=== PATIENT | male | born 1950 | race Caucasian/White ===

== ENCOUNTER 2022-04-18 18:12 | Observation (INO) | payer MEDICARE, SELFPAY ==
--- NOTE | ~2022-04-18 | CT_ITS ---
EXAMINATION: CT abdomen pelvis wo con DATE: 04/18/2022 19:01 INDICATION: Suprapubic and bilateral flank pain TECHNIQUE: Computed tomography (CT) of the abdomen and pelvis was performed without intravenous contr ast. The dose-length product (DLP) was 422.21 mGy-cm. Automated exposure control and iterative recons truction technique were employed. COMPARISON: None FINDINGS: There is a 6 mm nodule of the right middle lobe. There is calcified coronary artery atheros clerosis. The heart size is normal. The liver, spleen, pancreas, gallbladder, and adrenal glands are normal. There is a 7 mm stone in the distal right ureter causing moderate right hydroureteronephrosis . There is a 4 cm exophytic cyst of the right kidney. There is a 2 mm nonobstructing stone in the low er pole of the right kidney. There is a 5 mm nonobstructing stone in the left kidney upper pole. Ther e is calcified atherosclerosis of the aorta and many of the other arteries. No pathologically enlarge d abdominal or pelvic lymph nodes are identified. A retroaortic left renal vein is noted. There is no free intraperitoneal gas or evidence of bowel obstruction. Colonic diverticulosis is present without evidence of diverticulitis. There is severe lumbar spondylosis. IMPRESSION: 1. 7 mm stone of the distal right ureter causing moderate right hydroureteronephrosis. 2. Bilateral nonobstructing nephrolithiasis. 3. 6 mm nodule of the right middle lobe, probably old granulomatous disease. If the patient has no ri sk factors for malignancy, no further follow up is required. If there are risk factors for malignanc y (i.e., history of smoking, asbestos or radiation exposure), consider followup CT in 12 months. Reviewed, dictated and finalized at location F. IMPRESSION: 1. 7 mm stone of the distal right ureter causing moderate right hydroureteronep hrosis. 2. Bilateral nonobstructing nephrolithiasis. 3. 6 mm nodule of the right middle lobe, probably old granulomatous disease. If the patient has no risk factors for malignancy, no further follow up is requir ed. If there are risk factors for malignancy (i.e., history of smoking, asbest os or radiation exposure), consider followup CT in 12 months.
--- NOTE | ~2022-04-18 | XR_ITS ---
XR abdomen/kub 1V 04/19/2022 09:57 INDICATION: Right ureteral stone TECHNIQUE: KUB COMPARISON: CT dated 04/18/2022 FINDINGS: Bowel gas pattern is normal. There is no evidence of free air, mass, organomegaly, ascites or obstruction. There is a distal right ureteral stone overlying the sacrum. Significant change in p osition compared with prior CT allowing for differences of technique. The bones appear intact. IMPRESSION: 1: No significant change to position of distal right ureteral stone overlying for differences of tech nique.. Reviewed, dictated and finalized at location A. IMPRESSION: 1: No significant change to position of distal right ureteral stone overlying f or differences of technique..
[2022-04-18 18:17] VITALS: BP 162/99; PULSE 90; RESP 18; TEMP 36.8; O2SAT 97
[2022-04-18 18:49] LABS: Basophils Absolute Auto 0.1 K/mm3 (0.0-0.1); Basophils Percent Auto 0.6 % (0.2-1.2); Eosinophils Absolute Auto 0.1 K/mm3 (0-0.3); Eosinophils Percent Auto 0.6 % (0-4.4); Hematocrit 45.8 % (42.0-52.0); Hemoglobin 15.3 g/dL (14.0-18.0); Immature Granulocyte Absolute 0.07 K/mm3 (0.00-0.031); Immature Granulocyte Percent A 0.7 % (0-0.5); Lymphocytes Absolute Auto 1.79 K/mm3 (0.9-3.2); Lymphocytes Percent Auto 17.1 % (18.3-44.2); Mean Corpuscular HGB Conc 33.4 g/dl (32-36); Mean Corpuscular Hemoglobin 31.5 pg (26-34); Mean Corpuscular Volume 94.2 fl (80-100); Mean Platelet Volume 9.2 fl (7.4-10.4); Monocytes Percent Auto 9.7 % (2.6-8.5); Neutrophils Absolute Auto 7.5 K/mm3 (1.3-6.7); Neutrophils Percent Auto 71.3 % (45.5-73.1); Platelet Count Result 235 k/mm3 (150-375); Red Blood Count 4.86 M/mm3 (4.6-6.20); Red Cell Distribution Width 12.9 % (11.5-14.5); White Blood Count 10.5 K/mm3 (4.5-10.0)
--- NOTE | 2022-04-18 18:49 | ED.ABDPAIN ---
HPI - Abdominal Pain General Chief Complaint: Abdominal Pain Stated Complaint: ABD PAIN, HX OF STONES Time Seen by Provider: 04/18/22 18:17 Source: patient History of Present Illness HPI narrative: Patient presents with right-sided flank. Reports has had pain for approximately 3 days getting progressively worse so he came to the ER for further evaluation. His pain is crampy, constant, no clear aggravating or alleviating factors, radiates to his groin. Denies any nausea vomiting or diarrhea denies fevers, cough, congestion. Denies any urinary symptoms dysuria or hematuria. Patient ports a history of kidney stones and feels like this is prior stone. Reports he has passed all stones on his own he takes herbal supplements which assist with breaking up the stone. Related Data Allergies Allergy/AdvReac Type Severity Reaction Status Date / Time No Known Allergies Allergy Verified 04/18/22 18:16 Review of Systems Review of Systems: CONSTITUTIONAL: Denies fever, chills, or sweats. EYES: Denies visual changes, redness, or discharge. ENT: Denies rhinorrhea, congestion, sore throat, or otalgia. CARDIOVASCULAR: Denies chest pain, palpitations, or edema. RESPIRATORY: Denies cough or dyspnea. GASTROINTESTINAL: Denies nausea, vomiting, or diarrhea. GENITOURINARY: Denies dysuria or hematuria. SKIN: Denies rash or itching. MUSCULOSKELETAL: Denies joint pain, or myalgia. NEUROLOGIC: Denies headache, numbness, dizziness, or weakness. PSYCHIATRIC: Denies anxiety or depression. All systems reviewed & are unremarkable except as noted in HPI and below Exam Narrative: GENERAL: Well-appearing, well-nourished, and in no acute distress. HEAD: Normocephalic, atraumatic. EYES: PERRLA and EOMI. ENT: Nares clear, no rhinorrhea or epistaxis. Mucous membranes moist. NECK: Supple. No masses. No JVD CHEST: Clear to auscultation. No respiratory distress. No wheezes rales or rhonchi HEART: Regular rate and rhythm. No murmur heard. Normal peripheral pulses. ABDOMEN: Soft, nontender, nondistended BACK: Unable reduced pain with palpation of the back. EXTREMITIES: Normal range of motion. No edema. SKIN: Warm, dry, no rash. NEURO: No focal deficits. Alert and oriented x3. PSYCH: Normal mood and affect. Course Reevaluation(s) Reevaluation #1: Patient reports mild improvement in his pain labs and imaging reviewed. Based on the size and limited ability to control pain management for stay in the hospital for procedural intervention Case cussed with urology who agrees. Discussed with hospitalist team will admit for further management. Date: 04/18/22 Time: 20:23 Vital Signs Vital signs: Vital Signs Temperature 36.8 C 04/18/22 18:17 Pulse Rate 90 04/18/22 18:17 Respiratory Rate 18 04/18/22 18:17 Blood Pressure 162/99 H 04/18/22 18:17 Pulse Oximetry 97 04/18/22 18:17 Oxygen Delivery Room Air 04/18/22 18:17 Temperature 38.1 C H 04/18/22 22:14 Pulse Rate 114 H 04/18/22 22:14 Respiratory Rate 24 H 04/18/22 22:14 Blood Pressure 156/90 H 04/18/22 22:14 Pulse Oximetry 99 04/18/22 22:14 Oxygen Delivery Room Air 04/18/22 18:17 MDM - Abdominal Pain MDM Narrative Medical decision making narrative: Patient presents with right-sided flank pain history of stones feels like his prior stones. Labs and imaging obtained. 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 UA was without infection CT scan showed 7 mm right distal ureteral stone. Due to limited pain control and size of stone patient will be admitted for further evaluation by urology. Hospitalist team accepted for admission. Lab Data Result diagrams: 04/18/22 18:23 04/18/22 18:23 Labs: Lab Results 04/18/22 04/18/22 04/18/22 Range/Units 18:23 18:23 18:50 WBC 10.5 H (4.5-10.0) K/mm3 RBC 4.86 (4.6-6.20) M/mm3 Hgb 15.3 (14.0-18.0) g/dL Hct 45.8 (42.0-
[2022-04-18] MEDS: MORPHINE SULFATE (*CRX) 4 MG/ML INJ IV PUSH ×2 (18:51→20:58)
[2022-04-18 19:00] LABS: Alanine Aminotransferase 20 U/L (6-50); Albumin Level 4.6 g/dL (3.5-5.1); Alkaline Phosphatase 66 U/L (38-126); Anion Gap 7 mmol/L (8-16); Aspartate Amino Transferase 32 U/L (17-59); Bilirubin,Total 1.4 mg/dL (0.2-1.3); Blood Urea Nitrogen 20 mg/dL (9-20); Calcium 9.8 mg/dL (8.4-10.2); Carbon Dioxide 24 mmol/L (22-30); Chloride 99 mmol/L (98-107); Estimated Glomerular Filt Rate 46; Glucose 103 mg/dL (65-110); Lipase 65 U/L (23-300); Potassium 4.5 mmol/L (3.4-5.0); Sodium 130 mmol/L (137-145)
[2022-04-18 19:09] LABS: Appearance Urine Clear (Clear); Bilirubin Urine Negative (Negative); Blood Urine 2+ (Negative); Color Urine Yellow (Yellow); Glucose Urine UA Negative (Negative); Ketones Urine 2+ mg/dL (Negative); Leukocyte Esterase Ur Negative LEU/UL (Negative); Nitrate Urine Negative (Negative); Protein Urine Negative (Negative); Specific Grav Ur 1.015 (1.001-1.035); Urobilinogen Urine 0.2 mg/dL (<2.0)
[2022-04-18 19:14] LABS: Add Urine Microscopic? YES; Bacteria Urine Trace /hpf; Mucus Urine Rare /lpf; Squamous Epithelial Cell Urine Rare /hpf (Few); WBC Urine 0-3 /hpf
[2022-04-18 19:30] VITALS: BP 152/80; PULSE 80; RESP 16; TEMP 36.8; O2SAT 98
[2022-04-18 20:00] VITALS: BP 156/82; PULSE 82; RESP 16; TEMP 36.6; O2SAT 98
--- NOTE | 2022-04-18 20:36 | PM.IMHP ---
H&P: HPI History of Present Illness Date/Time: 04/18/22 20:36 Chief Complaint: Abdominal Pain Narrative: This very pleasant 71 year old male patient with significant PMH of multiple kidney stones, presents to the ER independently ambulatory with complaints of having right sided flank and abdominal pain that has been present for the past three days. He denies any injuries. He reports that he normally takes an all natural supplement called Materials Planner/Production Planner but it has not worked this time. He reportedly does not follow with a specific Urologist. He denied any urinary urgency, burning, frequency or hematuria. He was evaluated with labs and imaging in the ER and there is an abnormal Creatinine, however, we have nothing to compare it to as he has not been her previously. His Sodium is slightly low at 130, and his T-Bili is slightly elevated at 1.4. In addition, he has a CT that shows a 7 mm stone of the right distal ureter causing moderate right sided hydroureteronephrosis, bilateral non-obstructing nephrolithiasis, and a 6 mm nodule of the RML that is probable old granulomatous disease. He has no risk factors for malignancy, so he may follow up with his PCP for determination of any potential further testing. He denies any CP, dyspnea, or diarrhea. He has had emesis secondary to nausea from the pain. ED physician spoke with Urology group controller and he will see patient tomorrow for possible intervention. He will be admitted to observation tonight for pain control and hydration. Review of Systems Review of Systems: As noted in HPI Meds Home Medications and Allergies Allergies Allergy/AdvReac Type Severity Reaction Status Date / Time No Known Allergies Allergy Verified 04/18/22 18:16 Vital Signs Vital Signs - 24 hr 04/18/22 18:17 Temperature 98.3 F Pulse Rate 90 Respiratory Rate 18 Blood Pressure 162/99 H Pulse Oximetry 97 Oxygen Delivery Room Air Exam Const: General: uncomfortable HENMT: Ears: TM's normal bilaterally General nose exam: Normal nares present Mouth: Yes moist mucous membranes Eyes: General: appearance normal, both eyes and all related structures Sclera: sclerae normal Pupils: Equal, round and reactive pupils present EOM: EOMs intact bilaterally Neck: Neck: supple and no JVD Carotids: no bruits Lymphatic: lymphadenopathy not noted Chest: Other: Not tender to palpation. Resp: Effort & Inspection: normal respiratory effort Auscultation: clear to auscultation bilaterally Cardio: Rate: regular rate Rhythm: regular rhythm Heart sounds: no gallops, no murmurs and no rubs GI: Inspection: non-distended GI Palp: Yes Soft to palpation, No Tenderness to palpation present (GI) and No Guarding due to palpation present (GI) Auscultation: normal bowel sounds Other: + Flank Pain on right side. Back/Spine/Pelvis: Back: no CVA tenderness Cervical Spine: cervical ROM normal Thoracic/Lumbar Spine: thoracic and lumbar spine normal to inspection Skin: General skin exam: normal color and no rashes or lesions noted Lesions: no lesions noted Rashes: no rashes noted Wounds: no wounds Neuro: General: gait normal Speech: normal speech Motor exam (neuro): 5/5 motor strength present throughout and Normal motor muscle tone present throughout Sensory Exam: normal sensation Extrem: General: normal to inspection Other: FROM of all extremities without any deficits. Strength intact in all extremities. Psych: Mental Status: mental status grossly normal Affect: normal affect H&P: Results Labs Labs: Short CBC 04/18/22 Range/Units 18:23 WBC 10.5 H (4.5-10.0) K/mm3 Hgb 15.3 (14.0-18.0) g/dL Hct 45.8 (42.0-52.0) % Plt Count 235 (150-375) k/mm3 BMP 04/18/22 18:23 Sodium 130 L Potassium 4.5 Chloride 99 Carbon Dioxide 24 BUN 20 Creatinine 1.50 H Glucose 103 Calcium 9.8 Liver Function 04/18/22 Range/Units 18:23 Total Bilirubin 1.4 H (0.2-1.3) mg/dL AST 32 (17-59) U
[2022-04-18] MEDS: ONDANSETRON INJ 4 MG/2 ML VIAL IV PUSH (20:58)
[2022-04-18] MEDS: SODIUM CHLORIDE 0.9% IV 1,000 ML 125 ML IV CONT (20:59)
[2022-04-18 21:32] VITALS: TEMP 37.9
[2022-04-18 21:44] LABS: SARS-CoV-2 RNA PCR Negative
[2022-04-18 22:08] VITALS: BP 139/80; PULSE 74; RESP 16; TEMP 36.4; O2SAT 100
[2022-04-18 22:14] VITALS: BP 156/90; PULSE 114; RESP 24; TEMP 38.1; O2SAT 99
[2022-04-18 23:07] VITALS: BMI 25.7
--- NOTE | 2022-04-18 23:19 | ADMGEN ---
This patient, Gray Nascimento, was admitted to Medical Room 261-01. Patient/family oriented to hospital policies and general routines including ID bracelet, bed and alarms, visiting hours, pain management, procedures, bathroom and other care routines, personal items, smoking policy, room service/diet, and visiting hours. Information on how to activate the Rapid Response Team has been discussed. Patient/Family are encouraged to report perceived risks to care and to ask questions if they do not understand what they are told or what they should do.
[2022-04-19] VITALS (7 sets, daily range): BP systolic 94–145; BP diastolic 60–88; PULSE 64–78; RESP 13–18; TEMP 36.2–37.1; O2SAT 97–100
[2022-04-19 06:15] LABS: INR 1.3; Prothrombin Time 15.7 Seconds (11.1-14.7)
[2022-04-19 06:16] LABS: Partial Thromboplastin Time 39.9 SECONDS (22.3-36.8)
[2022-04-19 06:18] LABS: Basophils Absolute Auto 0.1 K/mm3 (0.0-0.1); Basophils Percent Auto 0.8 % (0.2-1.2); Eosinophils Absolute Auto 0.2 K/mm3 (0-0.3); Eosinophils Percent Auto 1.9 % (0-4.4); Hematocrit 40.7 % (42.0-52.0); Hemoglobin 13.4 g/dL (14.0-18.0); Immature Granulocyte Absolute 0.05 K/mm3 (0.00-0.031); Immature Granulocyte Percent A 0.6 % (0-0.5); Lymphocytes Absolute Auto 1.97 K/mm3 (0.9-3.2); Mean Corpuscular HGB Conc 32.9 g/dl (32-36); Mean Corpuscular Hemoglobin 31.5 pg (26-34); Mean Corpuscular Volume 95.5 fl (80-100); Mean Platelet Volume 9.4 fl (7.4-10.4); Monocytes Percent Auto 12.5 % (2.6-8.5); Neutrophils Absolute Auto 4.7 K/mm3 (1.3-6.7); Neutrophils Percent Auto 59.2 % (45.5-73.1); Platelet Count Result 199 k/mm3 (150-375); Red Blood Count 4.26 M/mm3 (4.6-6.20); Red Cell Distribution Width 12.9 % (11.5-14.5); White Blood Count 7.9 K/mm3 (4.5-10.0)
[2022-04-19 06:21] LABS: Alanine Aminotransferase 13 U/L (6-50); Albumin Level 3.7 g/dL (3.5-5.1); Alkaline Phosphatase 48 U/L (38-126); Anion Gap 4 mmol/L (8-16); Aspartate Amino Transferase 24 U/L (17-59); Bilirubin,Total 1.1 mg/dL (0.2-1.3); Blood Urea Nitrogen 20 mg/dL (9-20); Calcium 8.9 mg/dL (8.4-10.2); Carbon Dioxide 28 mmol/L (22-30); Chloride 100 mmol/L (98-107); Estimated CRCL calculation 47 ml/min; Estimated Glomerular Filt Rate 46; Glucose 88 mg/dL (65-110); Potassium 4.4 mmol/L (3.4-5.0); Sodium 132 mmol/L (137-145)
--- NOTE | 2022-04-19 07:41 | WPDURCON ---
Assessment and Plan Assessment and plan (1) Calculus, ureteral: Code(s): N20.1 - Calculus of ureter Status: Acute Assessment and Plan: Obstructing 7 mm right distal ureteral calculus and nonobstructing bilateral renal calculi. Will get a KUB to look for ureteral stone positioning calcification. Will subsequently make a decision about intervention with either ureteroscopy or extracorporeal shockwave lithotripsy. Urology Consult Note HPI Date Seen: 04/19/22 Requesting Physician: Eulogio Nino MD Primary Care Provider: Joseph Hair DO Consult Narrative Narrative: Gray Nascimento is a 71 year old male who has not been seen in our practice but reports a history of several renal and ureteral calculi which he has passed spontaneously. He presents to the emergency room last night with a 3 day history of progressively severe, intermittent right flank pain radiating to his right lower quadrant. The pain has been associated with nausea vomiting but no fevers chills or gross hematuria CT imaging demonstrates an obstructing 7 mm right distal ureteral calculus. additionally he has a 2 mm nonobstructing stone in the right kidney and a 5 mm nonobstructive stone in the left kidney. He has been admitted for hydration analgesics. Review of Systems Cardiovascular: Cardiovascular: Denies chest pain, Denies lightheadedness, Denies palpitations and Denies dyspnea Respiratory: Respiratory: Denies dyspnea Gastrointestinal: Gastrointestinal: Denies diarrhea, Denies nausea and Denies vomiting Genitourinary: Genitourinary: Denies hematuria and Denies dysuria Endocrine: Endocrine: Denies palpitations [facility] Family History Family History (Updated 04/18/22 @ 22:42 by Cachorro Mcmanus RN) Sibling Malignant neoplasm of prostate Father Cerebrovascular accident Social History Social History Smoking status: Former smoker Tobacco type: cigarettes Alcohol intake: current Drinks per week: 10 Substance use: never Spiritual care concerns: No Meds Home Medications and Allergies Allergies Allergy/AdvReac Type Severity Reaction Status Date / Time No Known Allergies Allergy Verified 04/18/22 18:16 Vital Signs Vital Signs - 24 hr 04/18/22 18:17 04/18/22 19:30 04/18/22 20:00 Temperature 98.3 F 98.3 F 97.8 F Pulse Rate 90 80 82 Respiratory Rate 18 16 16 Blood Pressure 162/99 H 152/80 H 156/82 H Pulse Oximetry 97 98 98 Oxygen Delivery Room Air 04/18/22 21:32 04/18/22 22:08 04/18/22 22:14 Temperature 100.2 F H 97.6 F 100.5 F H Pulse Rate 74 114 H Respiratory Rate 16 24 H Blood Pressure 139/80 156/90 H Pulse Oximetry 100 99 Oxygen Delivery 04/19/22 06:12 Temperature 98.7 F Pulse Rate 73 Respiratory Rate 14 Blood Pressure 124/73 Pulse Oximetry 98 Oxygen Delivery Exam Const: General: no acute distress Resp: Effort & Inspection: normal respiratory effort GI: Inspection: non-distended GI Palp: No abdominal tenderness and No Guarding due to palpation present (GI) Auscultation: normal bowel sounds Results Labs CBC & Chem 7: 04/19/22 05:14 04/19/22 05:14 Labs: Short CBC 04/18/22 04/19/22 Range/Units 18:23 05:14 WBC 10.5 H 7.9 (4.5-10.0) K/mm3 Hgb 15.3 13.4 L (14.0-18.0) g/dL Hct 45.8 40.7 L (42.0-52.0) % Plt Count 235 199 (150-375) k/mm3 BMP 04/18/22 04/19/22 18:23 05:14 Sodium 130 L 132 L Potassium 4.5 4.4 Chloride 99 100 Carbon Dioxide 24 28 BUN 20 20 Creatinine 1.50 H 1.50 H Glucose 103 88 Calcium 9.8 8.9 Liver Function 04/18/22 04/19/22 Range/Units 18:23 05:14 Total Bilirubin 1.4 H 1.1 (0.2-1.3) mg/dL AST 32 24 (17-59) U/L ALT 20 13 (6-50) U/L Alkaline Phosphatase 66 48 (38-126) U/L Albumin 4.6 3.7 (3.5-5.1) g/dL Urine 04/18/22 Range/Units 18:50 Urine Color Yellow
[2022-04-19] MEDS: SODIUM CHLORIDE 0.9% IV 1,000 ML 125 ML IV CONT (12:37)
--- NOTE | 2022-04-19 13:23 | WPDANESEPPF ---
Anes - Initial Pre Proc Eval Procedure: Operation Date: 04/19/22 14:30 Proposed Procedures p Cystoscopy, Right Ureteroscopy, - Dmitry Waterman MD s Possible Right Extracorporeal Shock Wave Lithotripsy - Dmitry Waterman MD Date/Time: 04/19/22 13:23 Surgeon: Manoj Moses MD Pre Op Diagnosis: ureteral stone Patient Data Age: 71 Gender: M Height: 1.91 m Weight: 93.6 kg Last Vital Signs Temp 37.1 C 04/19/22 06:12 Pulse 73 04/19/22 06:12 Resp 14 04/19/22 06:12 BP 124/73 04/19/22 06:12 Pulse Ox 98 04/19/22 06:12 O2 Del Method Room Air 04/19/22 09:50 Allergies Allergy/AdvReac Type Severity Reaction Status Date / Time No Known Allergies Allergy Verified 04/18/22 18:16 Laboratory Tests 04/18/22 04/18/22 04/18/22 18:23 18:23 18:50 WBC 10.5 K/mm3 H K/mm3 (4.5-10.0) RBC 4.86 M/mm3 M/mm3 (4.6-6.20) Hgb 15.3 g/dL g/dL (14.0-18.0) Hct 45.8 % % (42.0-52.0) MCV 94.2 fl fl (80-100) MCH 31.5 pg pg (26-34) MCHC 33.4 g/dl g/dl (32-36) RDW 12.9 % % (11.5-14.5) Plt Count 235 k/mm3 k/mm3 (150-375) MPV 9.2 fl fl (7.4-10.4) Immature Gran % (Auto) 0.7 % H % (0-0.5) Neut % (Auto) 71.3 % % (45.5-73.1) Lymph % (Auto) 17.1 % L % (18.3-44.2) Phelps % (Auto) 9.7 % H % (2.6-8.5) Eos % (Auto) 0.6 % % (0-4.4) Baso % (Auto) 0.6 % % (0.2-1.2) Lymph # (Auto) 1.79 K/mm3 K/mm3 (0.9-3.2) Phelps # (Auto) 1.0 K/mm3 H K/mm3 (0.1-0.6) Eos # (Auto) 0.1 K/mm3 K/mm3 (0-0.3) Baso # (Auto) 0.1 K/mm3 K/mm3 (0.0-0.1) Abs Immat Gran (auto) 0.07 K/mm3 H K/mm3 (0.00-0.031) Absolute Neuts (auto) 7.5 K/mm3 H K/mm3 (1.3-6.7) Absolute Nucleated RBC 0.0 K/mm3 K/mm3 (0.0-0.012) Nucleated RBC % 0.0 % % (0.0-0.2) PT INR APTT Sodium 130 mmol/L L mmol/L (137-145) Potassium 4.5 mmol/L mmol/L (3.4-5.0) Chloride 99 mmol/L mmol/L (98-107) Carbon Dioxide 24 mmol/L mmol/L (22-30) Anion Gap 7 mmol/L L mmol/L (8-16) BUN 20 mg/dL mg/dL (9-20) Creatinine 1.50 mg/dL H mg/dL (0.7-1.3) Estim Creat Clear Calc Not Reportable Estimated GFR 46 L (59 - ) Glucose 103 mg/dL mg/dL (65-110) Calcium 9.8 mg/dL mg/dL (8.4-10.2) Magnesium Total Bilirubin 1.4 mg/dL H mg/dL (0.2-1.3) AST 32 U/L U/L (17-59) ALT 20 U/L U/L (6-50) Alkaline Phosphatase 66 U/L U/L (38-126) Total Protein 8.0 g/dL g/dL (6.3-8.2) Albumin 4.6 g/dL g/dL (3.5-5.1) Lipase 65 U/L U/L (23-300) Urine Color Yellow (Yellow) Urine Appearance Clear (Clear) Urine pH 6.0 (5.0-9.0) Ur Specific Doucette 1.015 (1.001-1.035) Urine Protein Negative mg/dL mg/dL (Negative) Urine Glucose (UA) Negative mg/dL mg/dL (Negative) Urine Ketones 2+ mg/dL H mg/dL (Negative) Ur Blood (Man) 2+ H (Negative) Urine Nitrate Negative (Negative) Urine Bilirubin Negative (Negative) Urine Urobilinogen 0.2 mg/dL mg/dL (<2.0) Leukocyte Esterase Rfl Negative SALAZAR/UL SALAZAR/UL (Negative) Urine RBC 11-20 /hpf H /hpf (0-2) Urine WBC 0-3 /hpf /hpf Ur Squamous Epith Cells Rare /hpf /hpf (Few) Urine Bacteria Trace /hpf /hpf Urine Mucus Rare /lpf /lpf SARS-CoV-2 RNA (RT-PCR) 04/18/22 04/19/22 04/19/22 21:03 05:14 05:14 WBC 7.9 K/mm3 K/mm3 (4.5-10.0) RBC 4.26 M/mm3 L M/mm3 (4.6-6.20) Hgb 13.4 g/dL L g/dL (14.0-18.0) Hct 40.7 % L %
[2022-04-19] MEDS: SODIUM CHLORIDE 0.9% IV 500 ML 30 ML IV CONT (13:46)
--- NOTE | 2022-04-19 13:57 | PM.IMPN ---
Progress Note: A&P Assessment and Plan (1) Calculus, ureteral: Code(s): N20.1 - Calculus of ureter Status: Acute Assessment and Plan: - Pain control with Morphine 4 mg Q2 hrs for pain. - Zofran for nausea 4 mg Q4 hours. - IVF of NS at 125 ml/hr - Urology has been consulted and plan for intervention -stays NPO - Monitor labs and VS. (2) Hyponatremia: Code(s): E87.1 - Hypo-osmolality and hyponatremia Status: Acute Assessment and Plan: - likely benign and secondary to potential mild dehydration. - Patient is asymptomatic of any Neurological symptoms. - Continue IVF of NS at 125 ml/hr. - Trend labs and VS. Plan Lung nodule 6 mm right middle lobe probably follow-up outpatient with repeat CT in 12 months Bilateral nonobstructing nephrolithiasis Fever last night will cover IV antibiotics DVT prophylaxis Subjective Date/time seen: 04/19/22 13:57 Interval history: HPI: This very pleasant 71 year old male patient with significant PMH of multiple kidney stones, presents to the ER independently ambulatory with complaints of having right sided flank and abdominal pain that has been present for the past three days. He denies any injuries. He reports that he normally takes an all natural supplement called [employer] Broach Operator but it has not worked this time. He reportedly does not follow with a specific Urologist. He denied any urinary urgency, burning, frequency or hematuria. He was evaluated with labs and imaging in the ER and there is an abnormal Creatinine, however, we have nothing to compare it to as he has not been her previously. His Sodium is slightly low at 130, and his T-Bili is slightly elevated at 1.4. In addition, he has a CT that shows a 7 mm stone of the right distal ureter causing moderate right sided hydroureteronephrosis, bilateral non-obstructing nephrolithiasis, and a 6 mm nodule of the RML that is probable old granulomatous disease. He has no risk factors for malignancy, so he may follow up with his PCP for determination of any potential further testing. He denies any CP, dyspnea, or diarrhea. He has had emesis secondary to nausea from the pain. ED physician spoke with Urology hematology oncology consultant and he will see patient tomorrow for possible intervention. He will be admitted to observation tonight for pain control and hydration. Review of Systems Review of Systems: All systems reviewed & are unremarkable except as noted in HPI and below (HPI) Exam Narrative: GENERAL: The patient is well developed, not in acute distress HEENT: Nonicteric sclerae, PERRLA, EOMI. Oropharynx clear. Moist mucous membranes. Conjunctivae appear well perfused. CHEST: Chest wall is nontender. HEART: Regular rate and rhythm without murmur, rubs, or gallops LUNGS: Clear to auscultation bilaterally. no respiratory distress ABDOMEN: Soft, positive bowel sounds, non-tender, no organomegaly. SKIN: No rash, no excessive bruising, petechiae, or purpura. NEUROLOGIC: Cranial nerves II-XII intact, alert and oriented x 3, no gross motor deficits EXTREMITIES: no edema, cyanosis or clubbing Objective Data Vital Signs Vital Signs: Vital Signs - 24 hr 04/18/22 18:17 04/18/22 19:30 04/18/22 20:00 Temperature 98.3 F 98.3 F 97.8 F Pulse Rate 90 80 82 Respiratory Rate 18 16 16 Blood Pressure 162/99 H 152/80 H 156/82 H Pulse Oximetry 97 98 98 Oxygen Delivery Room Air 04/18/22 21:32 04/18/22 22:08 04/18/22 22:14 Temperature 100.2 F H 97.6 F 100.5 F H Pulse Rate 74 114 H Respiratory Rate 16 24 H Blood Pressure 139/80 156/90 H Pulse Oximetry 100 99 Oxygen Delivery 04/19/22 06:12 04/19/22 09:50 04/19/22 13:14 Temperature 98.7 F 98 F Pulse Rate 73 78 Respiratory Rate 14 16 Blood Pressure 124/73 145/78 H Pulse Oximetry 98 99 Oxygen Delivery Room Air Room Air Intake/Output Intake/Output: Intake & Output 04/16/22 04/17/22 04/18/22 04/19/22 23:59 23:59 23:59 23:59 Intake Total 1000 Output Total 400
--- NOTE | 2022-04-19 14:33 | WPDHPUPDATE1 ---
History and Physical Update Update Date/Time: 04/19/22 14:33 History and Physical has been reviewed, including an updated exam of the patient. There are NO changes in the patient's condition. Risks, benefits, and alternatives have been discussed and questions answered. Patient agrees to proceed with procedure. Based on KUB findings will proceed with right ESWL - discussed with pt.
[2022-04-19] MEDS: ceFAZolin 2 GM/D5W 50 ML 2 GM/50 ML BAG IVPB (14:39)
--- NOTE | 2022-04-19 14:47 | W.PM.PROC2 ---
Procedure Note - Detailed Date of Procedure 04/29/22 Pre-op Diagnosis ureteral stone Post-op Diagnosis Same Procedure Performed Right ESWL Surgeon Dmitry Waterman MD Description of Procedure The patient was brought to the operative suite where he was placed in the supine position on the Dornier lithotripsy table. The focal point of the lithotripter was placed at a 7mm right mid-ureteral calculus. A total of 300 shocks were delivered at a power setting of 6. There appeared to be good fragmentation of the stone. The patient tolerated the procedure well and was taken to the recovery room in good condition. Urine Output 400
--- NOTE | 2022-04-19 16:30 | PC.NURSE ---
Returned from OR per stretcher. Report received from JUAJNOSE Callahan.
--- NOTE | 2022-04-19 17:50 | PM.DS ---
DS: Admitting Diagnosis Discharge Date 04/19/2022 Admitting Diagnosis ureteral stone DS: Discharge Diagnosis Discharge Diagnosis (1) Calculus, ureteral: Code(s): N20.1 - Calculus of ureter Status: Acute Assessment and Plan: - CT scan on arrival were reviewed. Has left ureteral stone with obstruction. - Urology has been consulted and status status post ureteroscopy and stone removal okay to discharge per Urology. Follow-up with urology as an outpatient basis (2) Hyponatremia: Code(s): E87.1 - Hypo-osmolality and hyponatremia Status: Acute Assessment and Plan: - likely benign and secondary to potential mild dehydration. - Patient is asymptomatic of any Neurological symptoms. - Treated with normal saline with improvement Plan Lung nodule 6 mm right middle lobe probably follow-up outpatient with repeat CT in 12 months Bilateral nonobstructing nephrolithiasis Fever last night likely due to obstruction which is now resolved. Received perioperative antibiotics. DVT prophylaxis SCDs DS: Summary Hospital Course Hospital Course: see above Time Spent with Patient Time attestation: Total time spent providing and/or coordinating discharge services: 35 minutes Exam Narrative: GENERAL: The patient is well developed, not in acute distress HEENT: Nonicteric sclerae, PERRLA, EOMI. Oropharynx clear. Moist mucous membranes. Conjunctivae appear well perfused. CHEST: Chest wall is nontender. HEART: Regular rate and rhythm without murmur, rubs, or gallops LUNGS: Clear to auscultation bilaterally. no respiratory distress ABDOMEN: Soft, positive bowel sounds, non-tender, no organomegaly. SKIN: No rash, no excessive bruising, petechiae, or purpura. NEUROLOGIC: Cranial nerves II-XII intact, alert and oriented x 3, no gross motor deficits EXTREMITIES: no edema, cyanosis or clubbing DS: Data Data Completed and Pending Labs on day of discharge: Labs from last 24 hours 04/19/22 04/19/22 04/19/22 05:14 05:14 05:14 WBC 7.9 RBC 4.26 L Hgb 13.4 L Hct 40.7 L MCV 95.5 MCH 31.5 MCHC 32.9 RDW 12.9 Plt Count 199 MPV 9.4 Immature Gran % (Auto) 0.6 H Neut % (Auto) 59.2 Lymph % (Auto) 25.0 [place] % (Auto) 12.5 H Eos % (Auto) 1.9 Baso % (Auto) 0.8 Lymph # (Auto) 1.97 [place] # (Auto) 1.0 H Eos # (Auto) 0.2 Baso # (Auto) 0.1 Abs Immat Gran (auto) 0.05 H Absolute Neuts (auto) 4.7 Absolute Nucleated RBC 0.0 Nucleated RBC % 0.0 PT 15.7 H INR 1.3 APTT 39.9 H Sodium 132 L Potassium 4.4 Chloride 100 Carbon Dioxide 28 Anion Gap 4 L BUN 20 Creatinine 1.50 H Estim Creat Clear Calc 47 Estimated GFR 46 L Glucose 88 Calcium 8.9 Magnesium 2.0 Total Bilirubin 1.1 AST 24 ALT 13 Alkaline Phosphatase 48 Total Protein 6.0 L Albumin 3.7 Lipase Urine Color Urine Appearance Urine pH Ur Specific [place] Urine Protein Urine Glucose (UA) Urine Ketones Ur Blood (Man) Urine Nitrate Urine Bilirubin Urine Urobilinogen Leukocyte Esterase Rfl Urine RBC Urine WBC Ur Squamous Epith Cells Urine Bacteria Urine Mucus SARS-CoV-2 RNA (RT-PCR) 04/18/22 04/18/22 04/18/22 21:03 18:50 18:23 WBC RBC Hgb Hct MCV MCH MCHC RDW Plt Count MPV Immature Gran % (Auto) Neut % (Auto) Lymph % (Auto) [place] % (Auto) Eos % (Auto) Baso % (Auto) Lymph # (Auto) [place] # (Auto) Eos # (Auto) Baso # (Auto) Abs Immat Gran (auto) Absolute Neuts (auto) Absolute Nucleated RBC Nucleated RBC % PT INR APTT Sodium 130 L Potassium 4.5 Chloride 99 Carbon Dioxide 24 Anion Gap 7 L BUN 20 Creatinine 1.50 H Estim Creat Clear Calc Not Reportable Estimated GFR 46 L Glucose 103 Calcium 9.8 Magnesium Total Bilirubin
== END 2022-04-19 18:30 | disposition home or self-care (01) ==
LOC: ANHED 20:24 → ANH2MED 22:00
PROVIDERS: Nurse Practitioner Adult Health; Urology; Admitting Provider Internal Medicine; Emergency Provider Emergency Medicine; PCP Internal Medicine; Visit Provider Internal Medicine
PROC: (CPT 52352; principal; 2022-04-19 14:30)
DX: N13.2 Hydronephrosis with renal and ureteral calculous obstruction (principal); E87.1 Hypo-osmolality and hyponatremia; R91.1 Solitary pulmonary nodule; Z20.822 Contact with and (suspected) exposure to COVID-19
CPT/HCPCS: 50590; 36415; 74018; 74176; 80053; 81001; 83690; 83735; 85025; 85610; 85730; 96361; 96374; 96375; 96376; 99285; C9803; G0378; J0690; J1100; J2270; J2405; J2704; J3010; J7030; J7040; U0003; U0005

== ENCOUNTER 2022-04-30 07:43 | Outpatient (CLI) | payer MEDICARE, SELFPAY ==
--- NOTE | ~2022-04-30 | XR_ITS ---
XR abdomen/kub 1V 04/30/2022 07:59 Indication: Follow-up ureteral stone Procedure: KUB Comparison: 04/19/2022 Findings: Bowel gas pattern nonobstructive. No definite ureteral stone identified on the current study. There a re small stones in the upper pole of the left kidney. There is dextroscoliosis of the lumbar spine wi th lumbar spondylosis. No acute osseous abnormality. Impression: 1: Left nephrolithiasis. Reviewed, dictated and finalized at location A. Impression: 1: Left nephrolithiasis.
== END 2022-04-30 07:44 | disposition home or self-care (01) ==
PROVIDERS: PCP Internal Medicine; Visit Provider Urology
DX: N20.0 Calculus of kidney (principal)
CPT/HCPCS: 74018

== ENCOUNTER 2022-10-08 15:37 | Outpatient (CLI) | payer MEDICARE, SELFPAY ==
--- NOTE | ~2022-10-08 | XR_ITS ---
XR abdomen/kub 1V 10/08/2022 15:54 Indication: Ureteral stone. Procedure: KUB Comparison: 04/30/2022 Findings: There are small bilateral renal stones. Bowel gas pattern is nonobstructive. No definite st ones are identified in the expected course of the ureters. There are severe lumbar spondylosis with d extroscoliosis. No acute osseous abnormality. Impression: 1: Bilateral nephrolithiasis. Reviewed, dictated and finalized at location B. HER VISUALLY IMPAIRED Impression: 1: Bilateral nephrolithiasis.
== END 2022-10-08 15:38 | disposition home or self-care (01) ==
LOC: ANHIMG 15:39
PROVIDERS: PCP Internal Medicine; Visit Provider Urology
DX: N20.0 Calculus of kidney (principal)
CPT/HCPCS: 74018

== ENCOUNTER 2023-03-13 08:57 | Outpatient (CLI) | payer MEDICARE, SELFPAY ==
[2023-03-13 19:50] LABS: Prostate Specific Antigen 0.2 ng/mL (< OR = 4.0); Thyroid Stimulating Hormone < 0.015 uIU/mL (0.465-4.680)
[2023-03-13 20:13] LABS: Vitamin B12 > 1000.0 pg/mL (239-931)
== END 2023-03-13 08:58 | disposition home or self-care (01) ==
LOC: ANHGOSHLAB 08:59
PROVIDERS: PCP Internal Medicine; Visit Provider Clinical Nurse Specialist
DX: R41.3 Other amnesia (principal); Z12.5 Encounter for screening for malignant neoplasm of prostate
CPT/HCPCS: 36415; 82607; 84153; 84443; G0103

== ENCOUNTER 2023-03-21 10:50 | Outpatient (CLI) | payer MEDICARE, SELFPAY ==
[2023-03-22 08:45] LABS: Free T4 Free Thyroxine 1.21 ng/mL (0.78-2.19)
[2023-03-22 09:02] LABS: Thyroid Stimulating Hormone < 0.015 uIU/mL (0.465-4.680)
[2023-03-26 04:11] LABS: Thyroid Peroxidase Antibodies 3 IU/mL (<9)
== END 2023-03-21 10:51 | disposition home or self-care (01) ==
LOC: ANHGOSHLAB 10:52
PROVIDERS: PCP Internal Medicine; Visit Provider Clinical Nurse Specialist
DX: R79.89 Other specified abnormal findings of blood chemistry (principal)
CPT/HCPCS: 36415; 84439; 84443; 86376

== ENCOUNTER 2023-06-06 15:48 | Outpatient (CLI) | payer MEDICARE, SELFPAY ==
[2023-06-06 18:55] LABS: Alanine Aminotransferase 22 U/L (6-50); Albumin Level 4.1 g/dL (3.5-5.1); Alkaline Phosphatase 66 U/L (38-126); Anion Gap 9 mmol/L (8-16); Aspartate Amino Transferase 40 U/L (17-59); Bilirubin,Total 0.6 mg/dL (0.2-1.3); Blood Urea Nitrogen 18 mg/dL (9-20); Calcium 9.7 mg/dL (8.4-10.2); Carbon Dioxide 25 mmol/L (22-30); Chloride 103 mmol/L (98-107); Estimated Glomerular Filt Rate > 60; Glucose 94 mg/dL (65-110); Potassium 4.2 mmol/L (3.4-5.0); Sodium 137 mmol/L (137-145)
[2023-06-06 19:03] LABS: Parathyroid Intact 55.8 pg/mL (7.5-53.5)
[2023-06-06 20:09] LABS: Free T4 Free Thyroxine 1.25 ng/mL (0.78-2.19); Vitamin D 25 Hydroxy 61.6 ng/mL
[2023-06-10 18:59] LABS: Thyrotropin Receptor Antibody <1.00 IU/L (<=2.00)
[2023-06-11 15:05] LABS: Thyroid Stimulating Immunoglob <89 % baseline (<140)
== END 2023-06-06 15:49 | disposition home or self-care (01) ==
LOC: ANHGOSHLAB 15:49
PROVIDERS: PCP Internal Medicine; Visit Provider Internal Medicine
DX: E87.1 Hypo-osmolality and hyponatremia (principal); E04.1 Nontoxic single thyroid nodule; R79.89 Other specified abnormal findings of blood chemistry; R91.1 Solitary pulmonary nodule
CPT/HCPCS: 36415; 80053; 82306; 83519; 83970; 84439; 84443; 84445

== ENCOUNTER 2023-10-14 10:15 | Outpatient (CLI) | payer MEDICARE, SELFPAY ==
--- NOTE | ~2023-10-14 | XR_ITS ---
XR abdomen/kub 1V 10/14/2023 10:29 INDICATION: Ureteral stone follow-up TECHNIQUE: KUB COMPARISON: 10/08/2022 FINDINGS: Bowel gas pattern is normal. There is no evidence of free air, mass, organomegaly, ascites or obstruction. There is a stable left renal stone. There is a punctate left renal stone. Bowel gas pattern nonobstructive. Bones appear intact. Moderate dextroscoliosis of the lumbar spine. IMPRESSION: 1: Stable bilateral nephrolithiasis. Reviewed, dictated and finalized at location L. [employer]
== END 2023-10-14 10:16 | disposition home or self-care (01) ==
PROVIDERS: PCP Internal Medicine; Visit Provider Urology
DX: N20.2 Calculus of kidney with calculus of ureter (principal)
CPT/HCPCS: 74018